=== PATIENT | female | born 1975 | race Caucasian/White ===

== ENCOUNTER 2018-09-04 03:12 | Inpatient (IN) | payer OTHER ==
[~2018-09-04] VITALS: Ht 159 cm; Wt 70.8 kg
[2018-09-04] MEDS ORDERED: RINGERS SOLUTION,LACTATED 1,000 ML IV PRN (03:18)
[2018-09-04] MEDS ORDERED: OXYTOCIN 30 UNITS/LACT RINGERS 500 ML IV ONE (03:18)
[2018-09-04] MEDS ORDERED: METOCLOPRAMIDE HCL 5 MG/ML 2 ML VIAL IVP PRN (03:30)
[2018-09-04] MEDS ORDERED: CITRIC ACID/SODIUM CITRATE 30 ML SOLUTION UDCUP PO PRN (03:30)
[2018-09-04 04:09] VITALS: BP 139/81
[2018-09-04] MEDS ORDERED: PREN1TAB80 PO (04:14)
[2018-09-04] MEDS ORDERED: LEVO100T13 PO (04:14)
[2018-09-04] MEDS ORDERED: FERR-82 PO (04:14)
[2018-09-04 04:34] LABS: BASOPHILS % (AUTO) 0.1 % (0.0-2.0); EOSINOPHILS % (AUTO) 1.2 % (1.0-6.0); HEMATOCRIT 33.3 % (36-46); HEMOGLOBIN 11.6 g/dL (12.0-16.0); LYMPHOCYTES # (AUTO) 1.5 K/uL (1.0-4.8); MEAN CORPUSCULAR HEMOGLOBIN 34.1 pg (26.0-34.0); MEAN CORPUSCULAR HGB CONC 34.9 G/dL (31.0-37.0); MEAN CORPUSCULAR VOLUME 98 fL (80-100); MONOCYTES # (AUTO) 0.8 K/uL (0.1-1.0); MONOCYTES % (AUTO) 10.1 % (2.0-9.0); NEUTROPHILS # (AUTO) 5.8 K/uL (1.8-7.7); NEUTROPHILS % (AUTO) 70.6 % (40.0-70.0); PLATELET COUNT (AUTO) 184 K/uL (150-450); RED BLOOD CELL COUNT(AUTO) 3.41 MIL/uL (4.00-5.20); RED CELL DISTRIBUTION WIDTH 13.3 % (11.5-14.5)
[2018-09-04] MEDS: FentaNYL CITRATE-PF 100 MCG/2 ML VIAL IVP PRN ×4 (05:57→08:27)
[2018-09-04] MEDS ORDERED: OXYGEN THERAPY IH SCH (08:00)
[2018-09-04] MEDS: LEVOTHYROXINE SODIUM 100 MCG TABLET PO SCH (08:08)
[2018-09-04] MEDS: RINGERS SOLUTION,LACTATED 1,000 ML IV SCH ×2 (08:34→09:24)
[2018-09-04] MEDS ORDERED: ROPIVACAINE HCL/PF 0.2% 100 ML ED ONE (08:56)
[2018-09-04] MEDS ORDERED: LIDOCAINE/PF 2% 5 ML VIAL ONE (08:56)
[2018-09-04] MEDS ORDERED: NALBUPHINE HCL 10 MG/ML VIAL IVP PRN (09:15)
[2018-09-04] MEDS ORDERED: ROPIVACAINE HCL/PF 0.2% 100 ML ED PRN (09:15)
[2018-09-04] MEDS ORDERED: DiphenhydrAMINE HCL 50 MG/ML VIAL IVP PRN (09:15)
[2018-09-04] MEDS ORDERED: ONDANSETRON HCL 4 MG/2 ML VIAL IVP PRN (09:15)
[2018-09-04] MEDS ORDERED: OXYTOCIN 30 UNITS/LACT RINGERS 500 ML IV PRN (09:53)
[2018-09-04] MEDS ORDERED: CeFAZolin 2 GM/DEXTROSE 50 ML IV ONE (15:15)
[2018-09-04] MEDS ORDERED: BENZOCAINE 20%/MENTHOL 56 GM SPRAY CANISTER TP PRN (15:30)
[2018-09-04] MEDS ORDERED: GLYCERIN/WITCH HAZEL LEAF 40 PADS JAR TP PRN (15:30)
[2018-09-04] MEDS ORDERED: LANOLIN 7 GM OINTMENT TP PRN (15:30)
[2018-09-04] MEDS ORDERED: ACETAMINOPHEN/CODEINE 300-30 MG TABLET PO PRN ×2 (15:30)
[2018-09-04] MEDS: IBUPROFEN 800 MG TABLET PO SCH ×2 (17:28→22:41)
[2018-09-04] MEDS: MAGNESIUM HYDROXIDE SUSPENSION 30 ML UDCUP PO SCH (20:54)
[2018-09-05] MEDS: IBUPROFEN 800 MG TABLET PO SCH ×2 (07:00→13:05)
[2018-09-05] MEDS: MAGNESIUM HYDROXIDE SUSPENSION 30 ML UDCUP PO SCH (09:14)
[2018-09-05] MEDS: LEVOTHYROXINE SODIUM 100 MCG TABLET PO SCH (09:14)
[2018-09-05] MEDS ORDERED: ACET-66 PO (17:33)
[2018-09-05] MEDS ORDERED: IBUP-2070 PO (17:34)
[2018-09-05] MEDS ORDERED: DSS100 PO (17:35)
== END 2018-09-05 18:37 | disposition home or self-care (01) | DRG 807 ==
LOC: 4S 03:12 → PREOBSVTOIN 09-15 03:19
PROVIDERS: ADMIT Obstetrics & Gynecology; ATTEND Obstetrics & Gynecology
PROC: 10D07Z6 Extraction of Products of Conception, Vacuum, Via Natural or Artificial Opening (ICD-10-PCS; principal; 2018-09-04)
PROC: 0W8NXZZ Division of Female Perineum, External Approach (ICD-10-PCS; 2018-09-04)
PROC: 3E0R3BZ Introduction of Anesthetic Agent into Spinal Canal, Percutaneous Approach (ICD-10-PCS; 2018-09-04)
PROC: 00HU33Z Insertion of Infusion Device into Spinal Canal, Percutaneous Approach (ICD-10-PCS; 2018-09-04)
DX: O80 Encounter for full-term uncomplicated delivery (principal); Z37.0 Single live birth; Z3A.39 39 weeks gestation of pregnancy
CPT/HCPCS: 86850; 86900; 86901; J0690; J2405; J2590; J2795; J3010; J3490; J7120